=== PATIENT | female | born 1990 | race Hispanic/Latino ===

== ENCOUNTER 2017-10-27 15:01 | Emergency (ER) | payer OTHER ==
[~2017-10-27] VITALS: Ht 147.3 cm; Wt 59.3 kg
[~2017-10-27 15:01] MED LIST: APRI1 EACH PO; MECLIZINE HCL25 MG PO; MIRALAX17 GM PO; SERTRALINE HCL50 MG PO; ZOFRAN4 MG PO
[2017-10-27 15:25] LABS: HEMATOCRIT 35.7 % (36.0-46.0); HEMOGLOBIN 12.4 G/DL (11.9-15.5); MCHC 34.7 G/DL (30.0-36.0); MCV 86.2 FL (83-99); PLATELET COUNT 228 K/uL (156-360); RBC DIS.WIDTH-CV 12.3 % (11.8-14.6); RBC DIS.WIDTH-SD 39.1 % (39-53); RED BLOOD COUNT 4.14 M/uL (3.80-5.20); WHITE BLOOD COUNT 6.2 K/uL (4.1-10.2)
[2017-10-27 15:35] LABS: ALBUMIN 4.5 g/dL (3.2-4.8); CHLORIDE 107 mEq/L (99-109); POTASSIUM 3.7 mEq/L (3.7-5.4); SODIUM 142 mEq/L (136-147)
[2017-10-27 15:38] LABS: GLUCOSE 90 mg/dL (70-99); TOTAL PROTEIN 7.3 g/dL (6.4-8.3)
[2017-10-27 15:40] LABS: TOTAL BILIRUBIN 0.3 mg/dL (0.0-1.0)
[2017-10-27 15:41] LABS: ALKALINE PHOSPHATASE 64 IU/L (3-129); CREATININE 0.8 mg/dL (0.6-1.3); GFR ESTIMATE (CALCULATED) > 59 mL/min/
[2017-10-27 15:42] LABS: UREA NITROGEN (BUN) 9 mg/dL (9-23)
[2017-10-27 15:43] LABS: AST (GOT) 19 IU/L (2-34)
[2017-10-27 15:44] LABS: ALT (GPT) 19 IU/L (3-49)
[2017-10-27 15:50] LABS: QUANTITATIVE HCG < 4.0 MIU/ML
[2017-10-27 16:08] LABS: APPEARANCE CLOUDY ((CLEAR)); BILIRUBIN NEGATIVE; BLOOD LARGE; COLOR YELLOW ((YELLOW)); GLUCOSE (STRIP) NEGATIVE; KETONES NEGATIVE; LEUKOCYTES NEGATIVE; NITRITE NEGATIVE; PROTEIN (STRIP) 30; SPECIFIC GRAVITY 1.028 (1.000-1.030)
[2017-10-27 16:34] LABS: EPITHELIAL CELLS 3+ /HPF; RED BLOOD CELLS 30-40 /HPF (0-5)
[2017-10-27 16:35] LABS: BACTERIA 2+ /HPF; MUCUS 1+ /LPF; UCUL ADDED? YES
[2017-10-27] MEDS ORDERED: CIPRO500 MG PO (17:14)
[2017-10-27] MEDS ORDERED: ZOFRAN ODT4 MG PO (17:14)
[2017-10-27 17:15] LABS: SOURCE SWAB
[2017-10-27 17:44] VITALS: BP 101/68
== END 2017-10-27 17:44 | disposition home or self-care (01) ==
LOC: EME 15:01
PROVIDERS: Physician Assistant
DX: N39.0 Urinary tract infection, site not specified (principal); F32.9 Major depressive disorder, single episode, unspecified
CPT/HCPCS: 80053; 81003; 84702; 85027; 87086; 87210; 87491; 87591; 99281; 99284